=== PATIENT | female | born 1995 | race Two or more races ===

== ENCOUNTER 2024-07-14 16:16 | Emergency (ER) | payer MEDICAID, SELFPAY ==
[2024-07-14 16:31] VITALS: BP 121/78; PULSE 89; RESP 16; TEMP 36.7; O2SAT 98; BMI 32.5
--- NOTE | 2024-07-14 16:43 | PD.EDFMALE ---
ED Female Urogenital RME/HPI General Chief complaint: Urogenital-Female Stated complaint: DYSURIA Source: patient Arrival date/time: 07/14/24 16:16 29-year-old female with a history of type 2 diabetes presents to the emergency room with a chief complaint of dysuria and vaginal discharge x 2 days Mode of arrival: ambulatory Limitations: no limitations Related Data Home Medications ?Medication ?Instructions ?Recorded ?Confirmed metformin 500 mg tablet 500 mg PO BID 10/03/22 10/25/23 aspirin 81 mg capsule 81 mg PO QDAY 10/02/23 10/25/23 Previous Rx's ?Medication ?Instructions ?Recorded docusate sodium 100 mg capsule 100 mg PO BID #60 caps 10/27/23 (Colace) ibuprofen 800 mg tablet 800 mg PO Q6H PRN pain #120 tabs 10/27/23 lanolin 50 % topical ointment 1 applic topical TID PRN skin 10/27/23 irritation #15 tubes Allergies Allergy/AdvReac Type Severity Reaction Status Date / Time No Known Allergies Allergy Verified 10/26/23 15:51 ED Exam General Limitations: Present no limitations Course Orders Category Date Time Status UA, C/S IF [Urinalysis, C/S if Indicated] Stat Lab 07/14/24 16:36 Ordered Fluconazole [Diflucan] Med 07/14/24 16:42 Once 150 mg PO X1 ONE Vital Signs Vital signs: Vital Signs Temperature 98.1 F 07/14/24 16:31 Pulse Rate 89 07/14/24 16:31 Respiratory Rate 16 07/14/24 16:31 Blood Pressure 121/78 07/14/24 16:31 Pulse Oximetry (%) 98 07/14/24 16:31 Oxygen Delivery Method Room Air 07/14/24 16:31 Discharge Plan Prescriptions/Referrals Prescriptions/Med Rec: No Action metformin 500 mg tablet 500 mg PO BID Patient Comments: take 1 tablet by mouth every morning and evening with meals aspirin 81 mg Capsule 81 mg PO QDAY ibuprofen 800 mg tablet 800 mg PO Q6H MDD 4 PRN (Reason: pain) Qty: 120 0RF docusate sodium [Colace] 100 mg capsule 100 mg PO BID Qty: 60 0RF lanolin 50 % ointment 1 applic topical TID PRN (Reason: skin irritation) Qty: 15 0RF Patient/Caregiver Discharge Instructions Print Language: Azeri
--- NOTE | 2024-07-14 17:21 | PD.EDRME ---
Rapid Medical Screening Exam RME Arrival date/time: 07/14/24 16:16 29-year-old female with a history of type 2 diabetes presents to the emergency room with a chief complaint of dysuria and vaginal discharge x 2 days I have greeted and performed a focused initial assessment of this patient. A comprehensive ED assessment and evaluation of the patient, analysis of all test results, and completion of the medical decision making process will be conducted by additional ED providers. Chief Complaint: Urogenital-Female Time Seen by Provider: 07/14/24 16:43 Vital signs: Vital Signs Temperature 98.1 F 07/14/24 16:31 Pulse Rate 89 07/14/24 16:31 Respiratory Rate 16 07/14/24 16:31 Blood Pressure 121/78 07/14/24 16:31 Pulse Oximetry (%) 98 07/14/24 16:31 Oxygen Delivery Method Room Air 07/14/24 16:31 Vital signs reviewed by provider: Yes
[2024-07-14 17:24] LABS: Collection Type, Urine Clean Catch
[2024-07-14] MEDS: FLUCONAZOLE 150 MG TABLET PO (17:27)
[2024-07-14 17:32] LABS: Bacteria,Urine Rare; Bilirubin,Urine Negative (Negative); Blood,Urine 2+ (Negative); Clarity,Urine Clear (Clear/Hazy); Color,Urine Colorless (Lt Yel-Yel); Glucose, Urine 4+ (Negative); Ketones,Urine Negative (Negative); Leukocyte Esterase,Urine Positive (Negative); Nitrite,Urine Negative (Negative); Protein,Urine Negative (Neg - Trace); RBC,Urine 8 /hpf (0-3); Squamous Epithelial Cell,Urine 2 /hpf (0-5); Urobilinogen,Urine Negative mg/dL (0.0-1.0); WBC,Urine 17 /hpf (0-5)
[2024-07-14 17:34] LABS: Culture Indicated,Urine Yes
--- NOTE | 2024-07-14 17:54 | EDNOTE_ITS ---
<Statement entered by Allison Cuello MD - 07/15/24 07:26> As co-signing physician, I was present and available for consult prn. I concur with the plan and care as documented by the midlevel provider. ED Female Urogenital RME/HPI General Chief complaint: Urogenital-Female Stated complaint: DYSURIA Time Seen by Provider: 07/14/24 16:43 Source: patient Arrival date/time: 07/14/24 16:16 29-year-old female with a history of type 2 diabetes presents to the emergency room with a chief complaint of dysuria and vaginal discharge x 2 days Mode of arrival: ambulatory Limitations: no limitations RME / HPI RME / HPI Narrative: 07/14/24 16:16 29-year-old female with a history of type 2 diabetes presents to the emergency room with a chief complaint of dysuria and vaginal discharge x 2 days I have greeted and performed a focused initial assessment of this patient. A comprehensive ED assessment and evaluation of the patient, analysis of all test results, and completion of the medical decision making process will be conducted by additional ED providers. Related Data Home Medications ?Medication ?Instructions ?Recorded ?Confirmed metformin 500 mg tablet 500 mg PO BID 10/03/2210/24 aspirin 81 mg capsule 81 mg PO QDAY 10/02/2310/24 Previous Rx's ?Medication ?Instructions ?Recorded docusate sodium 100 mg capsule 100 mg PO BID #60 caps 10/27/23 (Colace) ibuprofen 800 mg tablet 800 mg PO Q6H PRN pain #120 tabs 10/27/23 lanolin 50 % topical ointment 1 applic topical TID PRN skin 10/27/23 irritation #15 tubes fluconazole 150 mg tablet 150 mg PO Q3D 1 dose #1 tab 07/14/24 nitrofurantoin 100 mg PO Q12H 5 days #10 ca ps 07/14/24 monohydrate/macrocrystals 100 mg capsule (Macrobid) Allergies Allergy/AdvReac Type Severity Reaction Status Date / Time No Known Allergies Allergy Verified 10/26/23 15:51 Review of Systems Review of Systems Systems Reviewed: All systems reviewed, normal except as documented Constitutional Constitutional: Reports system reviewed and no additional complaints, except as documented, Denies fatigue, Denies fever(s), Denies headache(s) and Denies weakness Eyes Eyes: Reports system reviewed and no additional complaints, except as documented, Denies blurry vision and Denies change in vision ENT Ears, Nose, Mouth, and Throat: Reports system reviewed and no additional complaints, except as documented, Denies otalgia, Denies headache(s), Denies nasal congestion, Denies throat swelling and Denies vertigo Cardiovascular Cardiovascular: Reports system reviewed and no additional complaints, except as documented, Denies chest pain, Denies dyspnea and Denies dyspnea on exertion Respiratory Respiratory: Reports system reviewed and no additional complaints, except as documented, Denies chest congestion, Denies cough, Denies dyspnea, Denies dyspnea on exertion and Denies wheezing Gastrointestinal Gastrointestinal: Reports system reviewed and no additional complaints, except as documented, Denies abdominal pain, Denies cramping, Denies nausea and Denies vomiting Genitourinary Genitourinary: Reports system reviewed and no additional complaints, except as documented, Denies abnormal vaginal bleeding, Reports dysuria and Reports vaginal discharge Musculoskeletal Musculoskeletal: Reports system reviewed and no additional complaints, except as documented and Denies back pain Integumentary/Breasts Skin/Breast: Reports system reviewed and no additional complaints, except as documented and Denies wounds Neurologic Neurologic: Reports system reviewed and no additional complaints, except as documented, Denies confusion, Denies headache(s), Denies lack of coordination, Denies vertigo and Denies weakness Psychiatric Psychiatric: Reports system reviewed and no additional complaints, except as documented, Denies anxiety, Denies confusion, Denies depression, Denies paranoia, Denies suicidal ideation and Denies tactile hallucinations Endocrine Endocrine: Reports system reviewed and no additional complaints, except as documented and Denies fatigue Hematologic/Lymphatic Hematologic/Lymphatic: Reports system reviewed and no additional complaints, except as documented and Denies lymphadenopathy Allergic/Immunologic Allergic/Immunologic: Reports system reviewed and no additional complaints, except as documented, Denies throat swelling, Denies urticaria and Denies wheezing Past Medical History Past Medical History NEUROLOGIC: Negative Neurological Disorders or Seizures CARDIAC: Negative Cardiac Disorders or Congestive Heart Failure RESPIRATORY: Negative Chronic Obstructive Pulmonary Disease (COPD) GASTROINTESTINAL: Positive Gastrointestinal Disorders and Obesity; Negative Hepatitis or Colorectal Cancer GENITOURINARY: Negative Genitourinary Disorders, Renal Disease or Prostate Cancer REPRODUCTIVE: Positive Previous Pregnancies; Negative Breast Cancer or Testicular Cancer MUSCULOSKELETAL: Negative Musculoskeletal Disorders or Bone Cancer ENDOCRINE: Positive Endocrine Disorders and Diabetes Mellitus Type 2; Negative Diabetes Mellitus Type 1 HEMATOLOGIC: Negative Blood Disorders or Anemia OTHER HISTORY: Negative Hospitalization, Autoimmune Disease, Down Syndrome, Developmental Delay, Shingles, Falls, Blood Transfusions, Blood Transfusion Reaction, Anesthesia Reactions, Organ Transplant, Chemotherapy, Radiation Therapy, Hyperbaric Therapy, MRSA, VRSA, Vancomycin-Resistant Enterococci, Human Immunodeficiency Virus (HIV), Chicken Pox, Measles, Mumps, Rubella (Telugu Measles), Pertussis, Clostridium Difficile, Cancer, Breast Cancer, Cervical Cancer, Colorectal Cancer, Lung Cancer, Ovarian Cancer, Prostate Cancer or Testicular Cancer Family History FAMILY HISTORY: Negative Family Psychiatric Problems, Family Respiratory Disorders, Family Cardiac Disorders, Family Gastrointestinal Problems, Family Cancer, Family Surgery or Family Anesthesia Reaction Surgical History SURGICAL: Negative Section or Organ Transplant Social History SMOKING STATUS: Never smoker ED Exam General Limitations: Present no limitations General appearance: Present alert and in no apparent distress Head Head exam: Present atraumatic Eye Eye exam: Present normal appearance, PERRL and EOMI ENT ENT exam: Present normal exam, normal oropharynx and mucous membranes moist Neck Neck exam: Present normal inspection, full ROM and trachea midline Chest Chest inspection: Present normal inspection and symmetric chest wall rise Respiratory Respiratory exam: Present normal lung sounds bilaterally Cardiovascular Cardiovascular exam: Present regular rate, normal rhythm and normal heart sounds Abdominal Exam Abdominal exam: Present soft and normal bowel sounds Speculum exam: Present vaginal discharge (Thick clumpy cottage cheese like texture to the vulva) Extremities Exam Extremities exam: Present normal inspection and full ROM Back Exam Back exam: Present normal inspection and full ROM Neurological Exam Neurological exam: Present alert, oriented X3 and CN II-XII intact Psychiatric Psychiatric exam: Present normal affect and normal mood Skin Skin exam: Present warm, dry, intact and normal color Course Quality Measures none Orders Category Date Time Status UA, C/S IF [Urinalysis, C/S if Indicated] Stat Lab 07/14/24 17:19 Completed Urine Culture Stat Lab 07/14/24 17:19 Received Fluconazole [Diflucan] Med 07/14/24 16:42 Discontinued 150 mg PO X1 ONE Vital Signs Vital signs: Vital Signs Temperature 98.1 F 07/14/24 16:31 Pulse Rate 89 07/14/24 16:31 Respiratory Rate 16 07/14/24 16:31 Blood Pressure 121/78 07/14/24 16:31 Pulse Oximetry (%) 98 07/14/24 16:31 Oxygen Delivery Method Room Air 07/14/24 16:31 Urogenital - Female MDM Narrative MDM Narrative:: 29-year-old female with a history of type 2 diabetes presents to the emergency room with a chief complaint of dysuria and vaginal discharge x 2 days Patient is hemodynamically stable and in no apparent distress Physical examination shows thick clumpy cottage cheese type texture to the outer vulva. Urinalysis was also positive for urinary tract infection. Antibiotics were given to the patient patient was discharged and educated to follow-up with primary care provider and return to the emergency room for any evidence of worsening signs or symptoms Patient data External records reviewed:: [facility] previous records Clinical information provided by:: patient Social determinants that could affect healthcare access:: none Patient has the following chronic illnesses:: No chronic illness How is presenting disease/condition affected by chronic disease/condition?: no chronic disease Evaluation data The following diagnostics were reviewed and interpreted by me:: lab results and radiology exam(s) Lab and/or radiology exams considered but not ordered:: Labs and radiology exams considered and ordered Interpretation Summary: N/A Medications / Prescriptions Medications or Prescriptions considered but not ordered:: Medication given Medication administrations:: Medication Administration History Discontinued Medications Fluconazole (Fluconazole 150 Mg Tablet) 150 mg PO X1 ONE Stop: 07/14/24 16:43 Last Admin: 07/14/24 17:27 Dose: 150 mg Documented By: Medication given Consultations Consultation(s) initiated? (list below): No Diagnosis Urogenital Female Differential Diagnosis: urinary tract infection, bacterial vaginosis, cervicitis, vaginitis, cystitis and other (Vaginal candidiasis) Most likely diagnosis given after review of the tests above:: Vaginal candidiasis Admission Indicated Admission indicated?: not indicated Admission Request Was there a request for admission?: No Disposition Plan Disposition Plan: Discharge Discharge Attestation Discharge Attestation: The patient and all family members were given an opportunity to ask questions and understood the discharge instructions. Discharge instructions specifically effects, indications for sooner follow up or return to the emergency department, and the expected course of current diagnosis. Patient condition: Stable Discharge Plan Plan Patient Disposition: HOME (Self Care) Disposition Comment: Stable Prescriptions/Referrals Prescriptions/Med Rec: New nitrofurantoin monohyd/m-cryst [Macrobid] 100 mg capsule 100 mg PO Q12H 5 Days Qty: 10 0RF Rx Instructions: must administer with a meal/food fluconazole 150 mg tablet 150 mg PO Q3D Qty: 1 0RF Rx Instructions: You received your first initial dose here in the emergency room. Please take your second dose on 07/17/2024 No Action metformin 500 mg tablet 500 mg PO BID Patient Comments: take 1 tablet by mouth every morning and evening with meals aspirin 81 mg Capsule 81 mg PO QDAY ibuprofen 800 mg tablet 800 mg PO Q6H MDD 4 PRN (Reason: pain) Qty: 120 0RF docusate sodium [Colace] 100 mg capsule 100 mg PO BID Qty: 60 0RF lanolin 50 % ointment 1 applic topical TID PRN (Reason: skin irritation) Qty: 15 0RF Referrals: Kane Vazquez MD [Primary Care Provider] - In 1 week Problem List Clinical Impression: Urinary tract infection, Candidiasis of vagina Patient/Caregiver Discharge Instructions Education Materials: ED CYSTITIS Female Adult, ED SUHA VAGINITIS Additional Instructions: Por favor, consulte con rojas m?dico de cabecera en las pr?ximas 24 a 48 horas. Se envi? el medicamento a rojas farmacia, rec?jalo y t?her seg?n lo indicado. Si hay evidencia de empeoramiento de los signos o s?ntomas, regrese a la maty de emergencias de inmediato. Print Language: Vietnamese Stand Alone Forms: Micaela Award Info., Patient Portal Info Letter PA/DIRECTOR OF VOLUNTEER SERVICES Supervising Physician PA/MANISH Supervising Physician: Dr. CUELLO
== END 2024-07-14 18:32 | disposition home or self-care (01) ==
PROVIDERS: Nurse Practitioner Family; Emergency Provider Emergency Medicine; PCP Family Medicine
DX: N39.0 Urinary tract infection, site not specified (principal); B37.31 Acute candidiasis of vulva and vagina; E11.9 Type 2 diabetes mellitus without complications
CPT/HCPCS: 81001; 87077; 87086; 87186; 99283; A9270

== ENCOUNTER → 2024-09-20 | Outpatient (CLI) | payer MEDICAID, SELFPAY ==
[2024-09-20 11:31] VITALS: BMI 32.1
--- NOTE | 2024-09-20 11:38 | EKG_ITS ---
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
[2024-09-20 13:08] LABS: Basophils % (Auto) 0 % (0-2.5); Eosinophils # (Auto) 0.1 Thou/mm3 (0.0-0.5); Eosinophils % (Auto) 1 % (0-10); Hemoglobin 15.1 g/dL (12.0-16.0); Immature Granulocytes % (Auto) 0 % (0-0); Immature Granulocytes Auto 0.02 Thou/mm3 (0.00-0.00); Lymphocytes # (Auto) 2.7 Thou/mm3 (1.0-4.8); Lymphocytes % (Auto) 35 % (10-50); Mean Corpuscular Hemoglobin 31.1 pg (25.0-35.0); Mean Corpuscular Volume 86 fL (80-100); Monocytes # (Auto) 0.4 Thou/mm3 (0.0-0.8); Monocytes % (Auto) 5 % (0-12); Neutrophils # (Auto) 4.4 Thou/mm3 (1.8-7.7); Neutrophils % (Auto) 58 % (37-80); Nucleated Red Blood Cell % 0 /100 WBC (0); Platelet Count 294 Thou/mm3 (140-440); RDW Standard Deviation 39.8 fL (36.4-46.3); Red Blood Count 4.86 Miln/mm3 (4.00-5.20); White Blood Count 7.7 Thou/mm3 (3.6-11.0)
[2024-09-20 13:20] LABS: Partial Thromboplastin Time 25.9 Seconds (22.0-36.0); Prothrombin Time 10.8 Seconds (9.0-12.2)
[2024-09-20 13:37] LABS: Alanine Aminotransferase 35 U/L (10-49); Albumin, Serum 4.6 gm/dL (3.5-5.0); Albumin/Globulin Ratio 1.8 (1.2-2.2); Alkaline Phosphatase 136 U/L (46-116); Anion Gap 8 (7-16); Aspartate Amino Transferase 46 U/L (0-34); BUN/Creatinine Ratio 11 Ratio (12-20); Beta HCG,Quantitative 1 mIU/mL (<5.0); Bilirubin,Total 0.6 mg/dL (0.3-1.2); Blood Urea Nitrogen 10 mg/dL (9-23); Calcium 9.8 mg/dL (8.3-10.6); Calcium (Corrected) 9.8 mg/dL (8.5-10.1); Carbon Dioxide 23.4 mMol/L (20.0-31.0); Chloride 103 mMol/L (98-107); Creatinine (Component) 0.9 mg/dL (0.6-1.3); Estimated Creatinine Clearance 84.7 mL/min (>60); Globulin 2.6 gm/dL (2.3-3.5); Osmolality,Calculated 285 (275-295); Potassium 4.1 mMol/L (3.4-5.1); Sodium 134 mMol/L (136-145); Total Protein 7.2 gm/dL (5.7-8.2); eGFR > 60 See Note
[2024-09-20 13:46] LABS: Glucose 419 mg/dL (74-106)
== END | disposition home or self-care (01) ==
LOC: SLAB 09-23 08:55
PROVIDERS: Referring Provider Surgery; Visit Provider Surgery
DX: L73.2 Hidradenitis suppurativa (principal)
CPT/HCPCS: 36415; 80053; 84702; 85025; 85610; 85730; 93005